=== PATIENT | male | born 1970 | race Caucasian/White ===

== ENCOUNTER → 2019-07-19 | Day surgery (SDC) | payer OTHER ==
[~2019-07-19] MED LIST: ALLO100T PO; ASPI81TA50 PO; ATOR20TA PO; METF10007 PO; OMEG1CAP50 PO; [UNRECOGNIZED DRUG - OTHER] ONE
[2019-07-19 12:31] VITALS: BP 137/80
--- NOTE | 2019-07-19 12:37 | PDOC ---
BRIEF OPERATIVE NOTE Date: Jul 19, 2019 Pre-Op Diagnosis right breast skin cyst Post-Op Diagnosis same Procedure Performed excision Surgeon Naren Anesthesia Type: Local Blood Loss <5cc Specimens Obtained skin and subcutaneous tissue right breast, 2:00 3x2x1 cm Findings sebaceous cyst Complications none Additional Remarks Wk # [id number] WESTON CAI MD Jul 19, 2019 12:37
--- NOTE | 2019-07-19 12:39 | DISCH ---
DISCHARGE INSTRUCTIONS-DC Condition on Discharge Condition on Discharge: Stable Activity after Discharge Activity Instructions for Disc: Resume previous activity, Activity as tolerated Diet after Discharge Diet after Discharge: Regular Wound/Incision Care Wound/Incision Care: Ice to area for comfort Other wound/incision instructi: december shower Tuesday Follow-Up Follow up with: Naren next week WESTON CAI MD Jul 19, 2019 12:39
--- NOTE | 2019-07-19 21:47 | OP ---
DATE OF SURGERY: 07/19/2019 PREOPERATIVE DIAGNOSIS: Skin cyst, right breast. POSTOPERATIVE DIAGNOSIS: Skin cyst, right breast. PROCEDURE: Excision of skin cyst, right breast. SURGEON: Weston Cai MD ANESTHESIA: Local. SPECIMEN: Skin and subcutaneous tissue, right breast at 2 o'clock that is 3 x 2 x 1 cm. DESCRIPTION OF PROCEDURE: After informed consent, the right chest was prepped and draped in usual sterile fashion. An elliptical skin incision, which had been made in the preoperative area with the patient's assistance, was infiltrated with local anesthetic, incised in the skin underlying process removed intact. Hemostasis with cautery and 3-0 Vicryl stick tie. Subcutaneous approximated with 3-0 Vicryl, skin closed with subcuticular 4-0 Monocryl. Steri-Strips and sterile dressing applied. The patient tolerated well and was taken to the postoperative area in stable condition. WESTON CAI MD DR: SADIE/nts JOB#: [id number] / [id number]
--- NOTE | 2019-07-24 10:07 | PATHOLOGY ---
[facility] Accession Number: [id number] . 01 Material submitted: . breast - SKIN AND SUBCUTANEOUS TISSUE RIGHT BREAST. Modifiers: right . 01 Clinical history: . Sebaceous cyst right breast. . 02 Diagnosis: Skin and subcutaneous tissue, right breast cyst, excision: - Epidermal inclusion cyst. . ([facility]; 07/23/2019) [facility] 07/23/2019 1616 Local . 02 Comment: There is no evidence of malignancy. . ([facility]; 07/23/2019) . 02 Electronically signed: . Benjamin Bey MD, Pathologist NPI- [id number] . 01 Gross description: . Received in formalin labeled "Elver Khan, right breast cyst" is an excision of mark-white skin and yellow-mark soft tissue measuring 2.8 x 1.9 x 1.7 cm. The ellipse of skin measures 2.5 x 1.1 x 0.4 cm. Upon sectioning, the cut surface displays a mark-white sebaceous cyst measuring 1.2 cm in greatest dimension. Second Crusher sections are submitted in cassette A1. ([facility] 07/21/2019[place] [facility] 07/21/2019 1009 Local . 02 Pathologist provided ICD-10: L72.0 . 02 CPT . 956590 Specimen Comment: A courtesy copy of this report has been sent to [phone], [phone] Specimen Comment: [phone] Specimen Comment: Report sent to and Performed at: [address], [place], [place] [id number] MD Caesar Perez MD Phone: [phone] Performed at: 02 [facility] [address] [place], [place] [id number] MD Benjamin Bey MD Phone: [phone]
== END ==
LOC: SURG 11:07
PROVIDERS: ATTEND Surgery
DX: L72.9 Follicular cyst of the skin and subcutaneous tissue, unspecified (principal); N64.9 Disorder of breast, unspecified
CPT/HCPCS: 19120; 88304; J3490